=== PATIENT | female | born 1970 | race Caucasian/White ===

== ENCOUNTER 2019-04-25 13:43 | Emergency (ER) | payer MEDICAID, MEDICARE ==
[~2019-04-25] VITALS: Ht 157 cm; Wt 98.0 kg
[2019-04-25] MEDS ORDERED: LIDOCAINE 1% INJ 20 ML 20 ML VIAL INJ ONE (14:15)
[2019-04-25] MEDS ORDERED: CEPH500T PO (15:02)
[2019-04-25] MEDS ORDERED: HYDR-4226 PO (15:02)
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
--- NOTE | 2019-04-25 15:26 | Diagnostic Imaging Report ---
PATIENT HISTORY: Left knee pain. TECHNIQUE: Three views of the left knee. COMPARISON: None. FINDINGS: No acute fracture or dislocation is seen in the left knee. Alignment appears normal. Joint spaces are preserved. There is moderate anterior and lateral soft tissue edema. There is a small left knee joint effusion. No radiopaque foreign bodies are seen. IMPRESSION: 1. No acute osseous abnormality is seen in the left knee. 2. Small left knee joint effusion. Moderate anterior and lateral soft tissue edema. Dictated by: Dictated on workstation # [id number]
[2019-04-25 15:54] VITALS: BP 105/65
== END 2019-04-25 15:54 | disposition home or self-care (01) ==
LOC: ER 13:45
DX: S81.012A Laceration without foreign body, left knee, initial encounter (principal); E11.9 Type 2 diabetes mellitus without complications; M79.7 Fibromyalgia; F31.9 Bipolar disorder, unspecified; F41.9 Anxiety disorder, unspecified; Z90.710 Acquired absence of both cervix and uterus; Z88.0 Allergy status to penicillin; Z88.1 Allergy status to other antibiotic agents; Z88.2 Allergy status to sulfonamides; Z88.8 Allergy status to other drugs, medicaments and biological substances; Z88.6 Allergy status to analgesic agent; Y04.0XXA Assault by unarmed brawl or fight, initial encounter
CPT/HCPCS: 12002; 73562

== ENCOUNTER 2019-05-02 20:44 | Emergency (ER) | payer MEDICARE, MEDICAID ==
[~2019-05-02] VITALS: Ht 157.4 cm; Wt 103.6 kg
[~2019-05-02 20:44] MED LIST: CEPH500T PO; HYDR-4226 PO
[2019-05-02] MEDS ORDERED: CEPH500T PO (21:12)
--- NOTE | 2019-05-02 21:13 | ED Integumentary General ---
General Chief Complaint: Skin/Wound Problems Stated Complaint: L KNEE SUTURES REMOVED/REDNESS/SWELLING/PAIN Nursing Triage Note: PT AMB TO [facility] 10 WITH COMPLAINT OF LEFT KNEE WOUND. STATES HAD STITCHES REMOVED YESTERDAY AND IS CONCERNED FOR INFECTION. Source: patient Exam Limitations: no limitations History of Present Illness Date Seen by Provider: May 02, 2019 Time Seen by Provider: 21:00 Initial Comments 48-year-old female who presents to emergency room with complaints of left knee wound is possibly infected. She reports that she was seen yesterday in the [facility] walk-in clinic for lower back pain and the walk-in care staff recommended that she have the sutures removed and took them out yesterday causing the wound to reopen today. There is slight erythema surrounding. The patient is currently on her last day of Keflex and has one more dose tonight. Denies fevers. Timing/Duration: yesterday Location: extremities (left knee) Associated Symptoms: denies symptoms Allergies and Home Medications Allergies Coded Allergies: Penicillins (Verified Allergy, Unknown, 04/25/19) bupropion (Verified Allergy, Unknown, 04/25/19) erythromycin base (Verified Allergy, Unknown, 04/25/19) ketorolac (Verified Allergy, Unknown, 04/25/19) rosuvastatin (Verified Allergy, Unknown, 04/25/19) sulfamethoxazole (Verified Allergy, Unknown, 04/25/19) trimethoprim (Verified Allergy, Unknown, 04/25/19) Home Medications Cephalexin 500 Mg Tablet, 500 MG PO TID Prescribed by: MEHDI MOE on 04/25/19 1502 Cephalexin 500 Mg Tablet, 500 MG PO TID Prescribed by: NANCY FUENTES on 05/02/19 211 Hydrocodone/Acetaminophen 1 Each Tablet, 1 TAB PO Q4-6HR Prescribed by: MEHDI MOE on 04/25/19 1502 Patient Home Medication List Home Medication List Reviewed: Yes Review of Systems Review of Systems Constitutional: see HPI; No chills, No fever Skin: see HPI, other (redness around wound on left knee) All Other Systems Reviewed Negative Unless Noted: Yes Past Izfkugl-Arkgyf-Lylpww Hx Past Med/Social Hx: Reviewed Nursing Past Med/Soc Hx Patient Social History Alcohol Use: Denies Use Recreational Drug Use: No (PAST HX) Smoking Status: Current Everyday Smoker Type Used: Cigarettes Recent Foreign Travel: No Contact w/Someone Who Travel: No Recent Infectious Disease Expo: No Recent Hopitalizations: No Physical Abuse: No Sexual Abuse: No Mistreated: No Immunizations Up To Date Tetanus Booster (TDap): Unknown PED Vaccines UTD: Yes Past Medical History Surgeries: Yes Gallbladder, Hysterectomy, Thyroidectomy Respiratory: No Cardiac: No Genitourinary: No Gastrointestinal: No Musculoskeletal: Yes Fibromyalgia Endocrine: Yes Diabetes, Non-Insulin dep Cancer: No Anxiety, Bipolar Integumentary: No Family Medical History Reviewed Nursing Family Hx Physical Exam Vital Signs Vital Signs - First Documented 05/02/19 20:59 Temp 35.5 Pulse 90 Resp 20 B/P (MAP) 140/99 (113) Pulse Ox 97 O2 Delivery Room Air Capillary Refill : Less Than 3 Seconds General Appearance: WD/WN, no apparent distress Cardiovascular: normal peripheral pulses, regular rate, rhythm, no edema, no gallop, no JVD, no murmur Respiratory: chest non-tender, lungs clear, normal breath sounds, no respir atory distress, no accessory muscle use Extremities: normal capillary refill Neurologic/Psychiatric: alert, normal mood/affect, oriented x 3 Skin: normal color, warm/dry Skin Problem Location: lower extremities (left knee) Skin Problem Character: erythema (erythema and swelling around wound on left knee.) Procedures/Interventions Suture Size: 4-0 Progress/Results/Core Measures Results/Orders Vital Signs/I&O 05/02/19 05/02/19 20:59 21:16 Temp 35.5 35.5 Pulse 90 90 Resp 20 20 B/P (MAP) 140/99 (113) 137/92 (113) Pulse Ox 97 97 O2 Delivery Room Air Blood Pressure Mean: 113 POS Departure Impression Primary Impression: Cellulitis Disposition: 01 HOME, SELF-CARE Condition: Stable/Unchanged Departure-Patient Inst. Decision time for Depature: 21:10 Referrals: NO,LOCAL PHYSICIAN (PCP/Family) Primary Care Physician Patient Instructions: Cellulitis (Skin Infection), Adult (DC) Add. Discharge Instructions: Continue Keflex for 3 more days. Follow-up with primary care within 1 week for recheck. Keep the wound covered to prevent bacteria reentering the wound. Return back to the emergency room for worsening symptoms or concerns as needed. All discharge instructions reviewed with patient and/or family. Voiced understanding. Scripts Cephalexin (Cephalexin) 500 Mg Tablet 500 MG PO TID for 3 Days, #9 TAB 0 Refills Prov: NANCY FUENTES 05/02/19 NANCY FUENTES May 02, 2019 21:13 POS
[2019-05-02 21:16] VITALS: BP 137/92
== END 2019-05-02 21:16 | disposition home or self-care (01) ==
LOC: EDUNIT# 20:44 → ER 20:45
DX: L03.116 Cellulitis of left lower limb (principal); M79.7 Fibromyalgia; E11.9 Type 2 diabetes mellitus without complications; F41.9 Anxiety disorder, unspecified; F31.9 Bipolar disorder, unspecified; F17.210 Nicotine dependence, cigarettes, uncomplicated; Z90.710 Acquired absence of both cervix and uterus; Z88.0 Allergy status to penicillin; Z88.1 Allergy status to other antibiotic agents; Z88.2 Allergy status to sulfonamides; Z88.8 Allergy status to other drugs, medicaments and biological substances; Z88.6 Allergy status to analgesic agent
CPT/HCPCS: 87070; 87077; 87186; 87205; 99282

== ENCOUNTER 2019-05-19 10:04 | Emergency (ER) | payer MEDICARE, MEDICAID ==
[~2019-05-19] VITALS: Ht 157.4 cm; Wt 102.3 kg
--- NOTE | 2019-05-19 11:12 | ED General ---
General Stated Complaint: PAIN ALL OVER;FLU LIKE SYMPTOMS;WITHDRAWS Source of Information: Patient Exam Limitations: No Limitations History of Present Illness Date Seen by Provider: May 19, 2019 Time Seen by Provider: 11:10 Initial Comments [facility]. She's had symptoms of agitation nausea vomiting diarrhea and headache. Nausea vomiting diarrhea subsided yesterday. She is out of her hydroxyzine, Ambien, Lipitor, Suboxone, duloxetine, C and flex. Her last dose of these was 04/21/19. She has an appointment with Dr. Margie Dawn. No fever no chills no cough Timing/Duration: 1 Week Severity: Moderate Associated Systoms: Headaches, Malaise, Nausea/Vomiting Allergies and Home Medications Allergies Coded Allergies: Penicillins (Verified Allergy, Unknown, 04/25/19) bupropion (Verified Allergy, Unknown, 04/25/19) erythromycin base (Verified Allergy, Unknown, 04/25/19) ketorolac (Verified Allergy, Unknown, 04/25/19) rosuvastatin (Verified Allergy, Unknown, 04/25/19) sulfamethoxazole (Verified Allergy, Unknown, 04/25/19) trimethoprim (Verified Allergy, Unknown, 04/25/19) Home Medications Atorvastatin Calcium 20 Mg Tablet, 20 MG PO HS Prescribed by: MEHDI MOE on 05/19/19 112 Cephalexin 500 Mg Tablet, 500 MG PO TID Prescribed by: MEHDI MOE on 04/25/19 1502 Cephalexin 500 Mg Tablet, 500 MG PO TID Prescribed by: NANCY FUENTES on 05/02/19 211 Clonidine HCl 0.1 Mg Tablet, 0.1 MG PO BID Prescribed by: MEHDI MOE on 05/19/19 112 Duloxetine HCl 60 Mg Capsule.dr, 60 MG PO DAILY Prescribed by: MEHDI MOE on 05/19/19 112 Hydrocodone/Acetaminophen 1 Each Tablet, 1 TAB PO Q4-6HR Prescribed by: MEHDI MOE on 04/25/19 1502 Hydroxyzine HCl 25 Mg Tablet, 25 MG PO Q4H PRN for ANXIETY Prescribed by: MEHDI MOE on 05/19/19 112 Ondansetron 4 Mg Tab.rapdis, 4 MG PO Q4H PRN for NAUSEA/VOMITING Prescribed by: MEHDI MOE on 05/19/19 1121 Tizanidine HCl 2 Mg Capsule, 2 MG PO TID Prescribed by: MEHDI MOE on 05/19/19 1121 Patient Home Medication List Home Medication List Reviewed: Yes Review of Systems Review of Systems Constitutional: see HPI EENTM: see HPI Respiratory: no symptoms reported Cardiovascular: no symptoms reported Gastrointestinal: No abdominal pain; nausea, vomiting Genitourinary: no symptoms reported Musculoskeletal: no symptoms reported Skin: no symptoms reported Psychiatric/Neurological: See HPI, Anxiety, Headache Hematologic/Lymphatic: No Symptoms Reported Immunological/Allergic: no symptoms reported Past Lsszcib-Fsbhuf-Dvrvlu Hx Patient Social History Type Used: Cigarettes Recent Foreign Travel: No Contact w/Someone Who Travel: No Recent Hopitalizations: No Immunizations Up To Date Tetanus Booster (TDap): Unknown PED Vaccines UTD: Yes Past Medical History Surgeries: Yes Gallbladder, Hysterectomy, Thyroidectomy Respiratory: No Cardiac: No Genitourinary: No Gastrointestinal: No Musculoskeletal: Yes Fibromyalgia Endocrine: Yes Diabetes, Non-Insulin dep Cancer: No Anxiety, Bipolar Integumentary: No Physical Exam Vital Signs Capillary Refill : Height, Weight, BMI Height: '" Weight: lbs. oz. kg; 41.00 BMI Method: General Appearance: No Apparent Distress, WD/WN Eyes: Bilateral Eye Normal Inspection, Bilateral Eye PERRL, Bilateral Eye EOMI HEENT: PERRL/EOMI, TMs Normal Neck: Full Range of Motion, Normal Inspection Respiratory: Normal Breath Sounds, No Accessory Muscle Use, No Respiratory Distress Cardiovascular: Normal Peripheral Pulses, Tachycardia Gastrointestinal: Normal Bowel Sounds, Non Tender, Soft Extremity: Normal Capillary Refill, Normal Inspection Neurologic/Psychiatric: Alert, Oriented x3 Skin: Normal Color, Warm/Dry Procedures/Interventions Suture Size: 4-0 Progress/Results/Core Measures Suspected Sepsis SIRS Temperature: Pulse: Respiratory Rate: Laboratory Tests 05/19/19 11:20: White Blood Count 13.0H Blood Pressure / Mean: Laboratory Tests 05/19/19 11:20: Platelet Count 262 Results/Orders Lab Results Laboratory Tests Test 05/19/19 11:14 05/19/19 11:20 Range/Units Urine Color YELLOW Urine Clarity CLEAR Urine pH 6.5 5-9 Urine Specific [place] 1.020 1.016-1.022 Urine Protein NEGATIVE NEGATIVE Urine Glucose (UA) NEGATIVE NEGATIVE Urine Ketones NEGATIVE NEGATIVE Urine Nitrite NEGATIVE NEGATIVE Urine Bilirubin NEGATIVE NEGATIVE Urine Urobilinogen 0.2 < = 1.0 MG/DL Urine Leukocyte Esterase NEGATIVE NEGATIVE Urine RBC (Auto) NEGATIVE NEGATIVE Urine RBC NONE /HPF Urine WBC NONE /HPF Urine Squamous Epithelial Cells 5-10 /HPF Urine Crystals NONE /LPF Urine Bacteria TRACE /HPF Urine Casts NONE /LPF Urine Mucus NEGATIVE /LPF Urine Culture Indicated NO White Blood Count 13.0 H 4.3-11.0 10^3/uL Red Blood Count 4.74 4.35-5.85 10^6/uL Hemoglobin 13.8 11.5-16.0 G/DL Hematocrit 41 35-52 % Mean Corpuscular Volume 86 80-99 FL Mean Corpuscular Hemoglobin 29 25-34 PG Mean Corpuscular Hemoglobin Concent 34 32-36 G/DL Red Cell Distribution Width 13.6 10.0-14.5 % Platelet Count 262 130-400 10^3/uL Mean Platelet Volume 9.6 7.4-10.4 FL Neutrophils (%) (Auto) 59 42-75 % Lymphocytes (%) (Auto) 29 12-44 % Monocytes (%) (Auto) 9 0-12 % Eosinophils (%) (Auto) 3 0-10 % Basophils (%) (Auto) 0 0-10 % Neutrophils # (Auto) 7.7 1.8-7.8 X 10^3 Lymphocytes # (Auto) 3.8 1.0-4.0 X 10^3 Monocytes # (Auto) 1.1 H 0.0-1.0 X 10^3 Eosinophils # (Auto) 0.4 H 0.0-0.3 10^3/uL Basophils # (Auto) 0.1 0.0-0.1 10^3/uL My Orders Orders - MEHDI MOE APRN Cbc With Automated Diff (05/19/19 11:12) Comprehensive Metabolic Panel (05/19/19 11:12) Ua Culture If Indicated (05/19/19 11:12) Drug Screen Stat (Urine) (05/19/19 11:13) Vital Signs/I&O Capillary Refill : Departure Impression Primary Impression: Symptom of drug withdrawal Disposition: 01 HOME, SELF-CARE Condition: Stable Departure-Patient Inst. Decision time for Depature: 11:17 Referrals: NO,LOCAL PHYSICIAN (PCP/Family) Primary Care Physician Patient Instructions: NO INSTRUCTIONS GIVEN Add. Discharge Instructions: 1. [facility]ations of been [facility] to [facility] 2. Call [facility] to check on appointment time. Scripts Ondansetron (Ondansetron Odt) 4 Mg Tab.rapdis 4 MG PO Q4H PRN for NAUSEA/VOMITING, #10 TAB Prov: MEHDI MOE APRN 05/19/19 Clonidine HCl (Clonidine HCl) 0.1 Mg Tablet 0.1 MG PO BID, #8 TAB Prov: MEHDI MOE APRN 05/19/19 Tizanidine HCl (Zanaflex) 2 Mg Capsule 2 MG PO TID, #60 CAP Prov: MEHDI MOE APRN 05/19/19 Duloxetine HCl (Duloxetine HCl) 60 Mg Capsule.dr 60 MG PO DAILY, #30 CAP Prov: MEHDI MOE APRN 05/19/19 Atorvastatin Calcium (Lipitor) 20 Mg Tablet 20 MG PO HS, #20 TAB Prov: MEHDI MOE APRN 05/19/19 Hydroxyzine HCl (Hydroxyzine HCl) 25 Mg Tablet 25 MG PO Q4H PRN for ANXIETY, #30 TAB Prov: MEHDI MOE FINANCIAL ADMINISTRATION OFFICER 05/19/19 MEHDI MOE APRN May 19, 2019 11:12 POS
[2019-05-19] MEDS ORDERED: CLON0.1T PO (11:21)
[2019-05-19] MEDS ORDERED: ONDA4TAB11 PO (11:21)
[2019-05-19] MEDS ORDERED: DULO60CA59 PO (11:21)
[2019-05-19] MEDS ORDERED: ATOR20TA49 PO (11:21)
[2019-05-19] MEDS ORDERED: TIZA2CAP PO (11:21)
[2019-05-19] MEDS ORDERED: HYDR-700 PO (11:21)
[2019-05-19 11:23] LABS: BILIRUBIN,URINE NEGATIVE (NEGATIVE); CLARITY,URINE CLEAR; COLOR,URINE YELLOW; GLUCOSE, URINE (UA) NEGATIVE (NEGATIVE); KETONES,URINE NEGATIVE (NEGATIVE); LEUKOCYTE ESTERASE ,URINE NEGATIVE (NEGATIVE); NITRITE,URINE NEGATIVE (NEGATIVE); PH,URINE 6.5 (5-9); PROTEIN,URINE NEGATIVE (NEGATIVE)
[2019-05-19 11:25] LABS: BASOPHILS # (AUTO) 0.1 10^3/uL (0.0-0.1); BASOPHILS % (AUTO) 0 % (0-10); EOSINOPHILS # (AUTO) 0.4 10^3/uL (0.0-0.3); EOSINOPHILS % (AUTO) 3 % (0-10); HEMATOCRIT 41 % (35-52); HEMOGLOBIN 13.8 G/DL (11.5-16.0); LYMPHOCYTES # (AUTO) 3.8 X 10^3 (1.0-4.0); LYMPHOCYTES % (AUTO) 29 % (12-44); MEAN CORPUSCULAR HEMOGLOBIN 29 PG (25-34); MEAN CORPUSCULAR HGB CONC 34 G/DL (32-36); MEAN CORPUSCULAR VOLUME 86 FL (80-99); MEAN PLATELET VOLUME 9.6 FL (7.4-10.4); MONOCYTES # (AUTO) 1.1 X 10^3 (0.0-1.0); MONOCYTES % (AUTO) 9 % (0-12); NEUTROPHILS # (AUTO) 7.7 X 10^3 (1.8-7.8); NEUTROPHILS % (AUTO) 59 % (42-75); PLATELET COUNT 262 10^3/uL (130-400); RED CELL DISTRIBUTION WIDTH 13.6 % (10.0-14.5)
[2019-05-19 11:29] LABS: BACTERIA,URINE TRACE /HPF
[2019-05-19 11:38] LABS: AMPHETAMINE SCREEN, URINE NEGATIVE (NEGATIVE); BARBITURATE SCREEN URINE NEGATIVE (NEGATIVE); BENZODIAZEPINES SCREEN URINE NEGATIVE (NEGATIVE); CANNABINOID SCREEN, URINE NEGATIVE (NEGATIVE); COCAINE SCREEN URINE NEGATIVE (NEGATIVE); METHADONE STAT NEGATIVE (NEGATIVE); METHAMPHETAMINE SCREEN URINE S NEGATIVE (NEGATIVE); OPIATE SCREEN URINE NEGATIVE (NEGATIVE); OXYCODONE STAT NEGATIVE (NEGATIVE); PROPOXYPHENE STAT NEGATIVE (NEGATIVE); TRICYCLIC ANTIDEPRESSANTS SCRE POSITIVE (NEGATIVE)
[2019-05-19 11:44] LABS: ALANINE AMINOTRANSFERASE 14 U/L (0-55); ALBUMIN 4.3 GM/DL (3.2-4.5); ALKALINE PHOSPHATASE 85 U/L (40-136); BILIRUBIN,TOTAL 0.2 MG/DL (0.1-1.0); BUN/CREATININE RATIO 34; CALCIUM 9.8 MG/DL (8.5-10.1); CARBON DIOXIDE 21 MMOL/L (21-32); CHLORIDE 108 MMOL/L (98-107); CREATININE SERUM 0.83 MG/DL (0.60-1.30); GFR ESTIMATED > 60; GLUCOSE 119 MG/DL (70-105); POTASSIUM 4.3 MMOL/L (3.6-5.0); SODIUM 141 MMOL/L (135-145); TOTAL PROTEIN 7.2 GM/DL (6.4-8.2)
[2019-05-19 11:46] VITALS: BP 156/81
== END 2019-05-19 11:48 | disposition home or self-care (01) ==
LOC: EDUNIT# 10:04 → ER 10:06
DX: R68.89 Other general symptoms and signs (principal); M79.7 Fibromyalgia; E11.9 Type 2 diabetes mellitus without complications; F41.9 Anxiety disorder, unspecified; F31.9 Bipolar disorder, unspecified; Z88.0 Allergy status to penicillin; Z88.1 Allergy status to other antibiotic agents; Z88.2 Allergy status to sulfonamides; Z88.8 Allergy status to other drugs, medicaments and biological substances; Z88.6 Allergy status to analgesic agent; Z90.710 Acquired absence of both cervix and uterus
CPT/HCPCS: 36415; 80053; 80306; 81000; 85025; 99282

== ENCOUNTER 2019-09-03 15:25 | Emergency (ER) | payer MEDICARE, MEDICAID ==
[~2019-09-03] VITALS: Ht 157.4 cm; Wt 82.4 kg
[~2019-09-03 15:25] MED LIST changes: +ATOR20TA49 PO; +CLON0.1T PO; +DULO60CA59 PO; +HYDR-700 PO; +ONDA4TAB11 PO; +TIZA2CAP PO
--- NOTE | 2019-09-03 16:01 | ED Chest Pain ---
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 Timing/Duration: 1-3 hours Severity/Quality: moderate, burning Location: other (upper chest across the clavicles) Radiation: no radiation Activities at Onset: none Prior CP/Workup: cardiac cath (reported as normal) Modifying Factors: improves with breathing, improves with coughing Allergies and Home Medications Allergies Coded Allergies: Penicillins (Verified Allergy, Unknown, 04/25/19) bupropion (Verified Allergy, Unknown, 04/25/19) erythromycin base (Verified Allergy, Unknown, 04/25/19) ketorolac (Verified Allergy, Unknown, 04/25/19) rosuvastatin (Verified Allergy, Unknown, 04/25/19) sulfamethoxazole (Verified Allergy, Unknown, 04/25/19) trimethoprim (Verified Allergy, Unknown, 04/25/19) Home Medications Atorvastatin Calcium 20 Mg Tablet, 20 MG PO HS Prescribed by: MEHDI MOE on 05/19/19 112 Cephalexin 500 Mg Tablet, 500 MG PO TID Prescribed by: MEHID MOE on 04/25/19 1502 Cephalexin 500 Mg Tablet, 500 MG PO TID Prescribed by: NANCY FUENTES on 05/02/19 211 Clonidine HCl 0.1 Mg Tablet, 0.1 MG PO BID Prescribed by: MEHDI MOE on 05/19/19 112 Duloxetine HCl 60 Mg Capsule.dr, 60 MG PO DAILY Prescribed by: MEHDI MOE on 05/19/19 112 Hydrocodone/Acetaminophen 1 Each Tablet, 1 TAB PO Q4-6HR Prescribed by: MEHDI MOE on 04/25/19 1502 Hydroxyzine HCl 25 Mg Tablet, 25 MG PO Q4H PRN for ANXIETY Prescribed by: MEHDI MOE on 05/19/19 112 Ondansetron 4 Mg Tab.rapdis, 4 MG PO Q4H PRN for NAUSEA/VOMITING Prescribed by: MEHDI MOE on 05/19/19 1121 Tizanidine HCl 2 Mg Capsule, 2 MG PO TID Prescribed by: MEHDI MOE on 05/19/19 1121 Patient Home Medication List Home Medication List Reviewed: Yes Review of Systems Review of Systems Constitutional: no symptoms reported EENTM: No Symptoms Reported Respiratory: See HPI, Cough, Shortness of Air Cardiovascular: See HPI, Chest Pain Gastrointestinal: No Symptoms Reported Genitourinary: No Symptoms Reported Musculoskeletal: other (patient has fibromyalgia and chronic pain) Skin: no symptoms reported Psychiatric/Neurological: No Symptoms Reported Endocrine: No Symptoms Reported Hematologic/Lymphatic: No Symptoms Reported Past Enzqcor-Qcmpak-Fllygj Hx Past Med/Social Hx: Reviewed Nursing Past Med/Soc Hx Patient Social History Drug of Choice: METH, POT, COCAINE, ACID Type Used: Cigarettes Recent Hopitalizations: No Immunizations Up To Date Tetanus Booster (TDap): Unknown PED Vaccines UTD: Yes Past Medical History Surgeries: Yes Gallbladder, Hysterectomy, Thyroidectomy Respiratory: No Cardiac: No Genitourinary: No Gastrointestinal: No Musculoskeletal: Yes Fibromyalgia Endocrine: Yes Diabetes, Non-Insulin dep Cancer: No Anxiety, Bipolar Integumentary: No Physical Exam Vital Signs Vital Signs - First Documented 09/03/19 15:30 Temp 36.3 Pulse 86 Resp 16 B/P (MAP) 152/70 (97) Pulse Ox 98 O2 Delivery Room Air Capillary Refill : Less Than 3 Seconds Height, Weight, BMI Height: '" Weight: lbs. oz. kg; 41.00 BMI Method: General Appearance: No Apparent Distress, WD/WN, Obese HEENT: PERRL/EOMI, Normal ENT Inspection, Moist Mucous Membranes Neck: Full Range of Motion, Normal Inspection, Supple Respiratory: Chest Non Tender, Lungs Clear, Normal Breath Sounds, No Accessory Muscle Use Cardiovascular: Regular Rate, Rhythm, No Edema, No Gallop, No JVD, Normal Peripheral Pulses Gastrointestinal: Normal Bowel Sounds, No Organomegaly, No Pulsatile Mass, Soft Extremity: Normal Capillary Refill, Normal Inspection, Normal Range of Motion, Non Tender, No Calf Tenderness Neurologic/Psychiatric: Alert, Oriented x3, No Motor/Sensory Deficits, Normal Mood/Affect, financial advocate II-XII Norm as Tested Skin: Normal Color, Warm/Dry Lymphatic: No Adenopathy Procedures/Interventions Suture Size: 4-0 Progress/Results/Core Measures Results/Orders Lab Results Laboratory Tests Test 09/03/19 15:40 09/03/19 18:35 Range/Units White Blood Count 11.9 H 4.3-11.0 10^3/uL Red Blood Count 4.39 4.35-5.85 10^6/uL Hemoglobin 12.8 11.5-16.0 G/DL Hematocrit 38 35-52 % Mean Corpuscular Volume 88 80-99 FL Mean Corpuscular Hemoglobin 29 25-34 PG Mean Corpuscular Hemoglobin Concent 33 32-36 G/DL Red Cell Distribution Width 13.2 10.0-14.5 % Platelet Count 347 130-400 10^3/uL Mean Platelet Volume 9.4 7.4-10.4 FL Sodium Level 144 135-145 MMOL/L Potassium Level 3.9 3.6-5.0 MMOL/L Chloride Level 105 98-107 MMOL/L Carbon Dioxide Level 26 21-32 MMOL/L Anion Gap 13 5-14 MMOL/L Blood Urea Nitrogen 24 H 7-18 MG/DL Creatinine 0.80 0.60-1.30 MG/DL Estimat Glomerular Filtration Rate > 60 BUN/Creatinine Ratio 30 Glucose Level 124 H 70-105 MG/DL Calcium Level 10.2 H 8.5-10.1 MG/DL Corrected Calcium 10.0 8.5-10.1 MG/DL Total Bilirubin 0.2 0.1-1.0 MG/DL Aspartate Amino Transf (AST/SGOT) 23 5-34 U/L Alanine Aminotransferase (ALT/SGPT) 30 0-55 U/L Alkaline Phosphatase 83 40-136 U/L Troponin I < 0.30 < 0.30 <0.30 NG/ML Pro-B-Type Natriuretic Peptide 70.6 <75.0 PG/ML Total Protein 7.1 6.4-8.2 GM/DL Albumin 4.2 3.2-4.5 GM/DL Lipase 48 8-78 U/L My Orders Orders - CHANDLER,GARTH B DO Cbc No Diff (09/03/19 15:42) Comprehensive Metabolic Panel (09/03/19 15:42) Lipase (09/03/19 15:42) Troponin I Fs (09/03/19 15:42) Troponin I Fs (09/03/19 17:42) Chest 1 View Ap/Pa Only (09/03/19 15:42) Ed Iv/Invasive Line Start (09/03/19 15:42) Probnp Fs (09/03/19 15:42) Ekg Tracing (09/03/19 15:51) Troponin I Fs (09/03/19 18:43) Vital Signs/I&O 09/03/19 15:30 Temp 36.3 Pulse 86 Resp 16 B/P (MAP) 152/70 (97) Pulse Ox 98 O2 Delivery Room Air Progress Progress Note : Progress Note Patient is a morbidly obese female with complaint of chest pain for 2 hours prior cardiac workup C does have cardiac risk factors giving her a heart score 3 she is perk score of 0. She does have a history of COPD the pleuritic nature of her pain appears her 0 most likely it's pulmonary-related plan will be x-ray showed troponins finish her cardiac workup most likely symptomatic treatment and discharged home Initial ECG Impression Date: Sep 03, 2019 Initial ECG Impression Time: 16:01 Initial ECG Rate: 74 Initial ECG Rhythm: Normal Sinus Initial ECG Intervals: Normal Initial ECG Impression: Nonspecific Changes Departure Communication (Admissions) Patient's been hemodynamically stable up and ambulatory complaining on her labs in the department without apparent distress heart score is low perks score is 0 diagnostic studies and serial troponins were negative. Chest x-ray Is unremarkable BNP was unremarkable Impression Primary Impression: Chest pain, non-cardiac Disposition: 01 HOME, SELF-CARE Condition: Stable Departure-Patient Inst. Referrals: [facility] [place] NO,LOCAL PHYSICIAN (PCP) Primary Care Physician Patient Instructions: Chest Pain That Is Not Caused by the Heart (DC) Add. Discharge Instructions: Chest pain is not related in part most likely is related to her lungs nonsteroidal anti-inflammatory drugs are recommended as well as cessation of smoking All discharge instructions reviewed with patient and/or family. Voiced understanding. GARTH CHANDLER DO Sep 03, 2019 16:01
--- NOTE | 2019-09-03 16:13 | Diagnostic Imaging Report ---
INDICATION: Chest pain. EXAMINATION: Single-view chest from 09/03/2019. FINDINGS: There is mild increased density at the lung bases bilaterally, possibly developing infiltrates versus atelectasis; correlate with symptoms. The heart is unremarkable. Pulmonary vasculature is congested. No effusions or pneumothorax. IMPRESSION: 1. Pulmonary vascular congestion. 2. Atelectasis versus early infiltrate at the lung bases. Dictated by: Dictated on workstation # [id number]
[2019-09-03 16:20] LABS: HEMOGLOBIN 12.8 G/DL (11.5-16.0); MEAN PLATELET VOLUME 9.4 FL (7.4-10.4); RED CELL DISTRIBUTION WIDTH 13.2 % (10.0-14.5); WHITE BLOOD COUNT 11.9 10^3/uL (4.3-11.0)
[2019-09-03 16:33] LABS: ALANINE AMINOTRANSFERASE 30 U/L (0-55); ALBUMIN 4.2 GM/DL (3.2-4.5); ALKALINE PHOSPHATASE 83 U/L (40-136); BILIRUBIN,TOTAL 0.2 MG/DL (0.1-1.0); BUN/CREATININE RATIO 30; CALCIUM 10.2 MG/DL (8.5-10.1); CARBON DIOXIDE 26 MMOL/L (21-32); CHLORIDE 105 MMOL/L (98-107); GFR ESTIMATED > 60; GLUCOSE 124 MG/DL (70-105); POTASSIUM 3.9 MMOL/L (3.6-5.0); SODIUM 144 MMOL/L (135-145); TOTAL PROTEIN 7.1 GM/DL (6.4-8.2)
[2019-09-03 16:34] LABS: LIPASE 48 U/L (8-78)
[2019-09-03 19:31] VITALS: BP 153/56
--- NOTE | 2019-09-03 19:31 | NUR ---
Patient refused to sign discharge paperwork and take discharge instructions. Patient is upset because she doesn't believe her concerns were addressed. Patient stormed out of the ER.
== END 2019-09-03 19:31 | disposition home or self-care (01) ==
LOC: EDUNIT# 15:25 → ER FS 15:26
DX: R07.89 Other chest pain (principal); F31.9 Bipolar disorder, unspecified; F41.9 Anxiety disorder, unspecified; E11.9 Type 2 diabetes mellitus without complications; Z88.0 Allergy status to penicillin; Z88.1 Allergy status to other antibiotic agents; Z88.6 Allergy status to analgesic agent; Z88.2 Allergy status to sulfonamides; Z88.8 Allergy status to other drugs, medicaments and biological substances
CPT/HCPCS: 36415; 71045; 80053; 83690; 83880; 84484; 85027; 93005